=== PATIENT | female | born 1985 | race African-American/Black ===

== ENCOUNTER 2020-06-26 15:46 | Emergency (ER) | payer OTHER ==
[~2020-06-26] VITALS: Ht 162.6 cm; Wt 65.8 kg
[~2020-06-26 15:46] MED LIST: ACETAMINOPHEN325 M1 PO; BENZONATATE100 MG PO; CEFDINIR300 MG PO; CIPROFLOXACIN500 M1 PO; DOXYCYCLINE 10100 MG PO; MOBIC15 MG PO; MUCINEX TA600 MG/TA2 PO; NEXIUM40 MG PO; ONDANSETRON HCL4 M2 PO; PREDNISONE 20 M20 M1 PO; ULTRAM 50MG TAB50 MG PO; VENTOLIN HFA 1818 GM INH; ZOFRAN4 MG PO
[2020-06-26 16:34] VITALS: BP 103/66
== END 2020-06-26 16:34 | disposition home or self-care (01) ==
LOC: M.ERS 15:46
DX: S06.0X0A Concussion without loss of consciousness, initial encounter (principal); V89.2XXA Person injured in unspecified motor-vehicle accident, traffic, initial encounter; Y93.89 Activity, other specified; Y92.89 Other specified places as the place of occurrence of the external cause; Y99.8 Other external cause status